=== PATIENT | female | born 1975 | race Caucasian/White ===

== ENCOUNTER 2019-05-05 15:55 | Emergency (ER) | payer OTHER ==
[~2019-05-05] VITALS: Ht 162.6 cm; Wt 92.5 kg
[~2019-05-05 15:55] MED LIST: ADVAIR 100-501 EACH INH; ADVAIR 500-501 EACH INH; ALBUTEROL SULF8.5 GM INH; AUGMENTIN 500-500 MG PO; BACTRIM DS TAB1 EACH PO; CEPHALEXIN500 MG PO; CLARITIN10 MG PO; DICLOFENAC SODI75 MG PO; DILAUDID4 MG PO; DOXYCYCLINE HY100 MG PO; DUONEB 0.5 MG-33 ML INH; GLUCOPHAGE XR500 MG PO; GLYBURIDE2.5 MG PO; IBUPROFEN400 MG PO; KEFLEX500 MG PO; LIPITOR20 MG PO; LISINOPRIL-HCT1 EAC2 PO; LISINOPRIL2.5 MG PO; METFORMIN HCL500 MG PO; NORCO 10-325 T1 EACH PO; NORCO 5-325 TA1 EACH PO; PERCOCET 5-3251 EACH PO; PROCARDIA10 MG PO; PROVERA10 MG PO; PROZAC20 MG PO; SEPTRA DS TABL1 EACH PO; TESSALON PERLE100 MG PO; VENTOLIN HFA18 GM INH; WELLBUTRIN XL150 MG PO; WELLBUTRIN XL300 MG PO; XANAX XR2 MG PO; XANAX2 MG PO; ZITHROMAX250 MG PO
--- OUTSIDE RECORDS SUMMARY | 2019-05-05 15:58 | XMS ---
PreManage Notification: MARCO NELSON Security Tile And Mottle Supervisor Events No recent Security Events currently on file CRITERIA MET - [facility] CARE PROVIDERS There are no care providers on record at this time. Dina has no Care Guidelines for this patient. Kesha VISIT COUNT (12 MO.) 2 RAKESH Pierson TOTAL 2 NOTE: Visits indicate total known visits. 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
[2019-05-05] MEDS ORDERED: LIPITOR40 MG PO (16:16)
[2019-05-05] MEDS ORDERED: PREDNISONE20 MG PO (17:58)
[2019-05-05] MEDS ORDERED: ADVAIR 250-501 EACH INH (17:58)
== END 2019-05-05 18:10 | disposition home or self-care (01) ==
LOC: ED 15:55
DX: R10.11 Right upper quadrant pain (principal); E11.9 Type 2 diabetes mellitus without complications; J45.909 Unspecified asthma, uncomplicated; I10 Essential (primary) hypertension; F32.9 Major depressive disorder, single episode, unspecified; F41.9 Anxiety disorder, unspecified; F17.200 Nicotine dependence, unspecified, uncomplicated; Z90.49 Acquired absence of other specified parts of digestive tract; Z88.8 Allergy status to other drugs, medicaments and biological substances; Z79.84 Long term (current) use of oral hypoglycemic drugs
CPT/HCPCS: 80053; 81001; 83690; 85025; 99284; J7512

== ENCOUNTER 2020-06-09 20:46 | Emergency (ER) | payer OTHER ==
[~2020-06-09] VITALS: Ht 162.6 cm; Wt 92.5 kg
[~2020-06-09 20:46] MED LIST changes: +ADVAIR 250-501 EACH INH; +LIPITOR40 MG PO; +PREDNISONE20 MG PO
--- OUTSIDE RECORDS SUMMARY | 2020-06-09 20:48 | XMS ---
PreManage Notification: MARCO NELSON Security Concrete Mixing Plant Laborer Events No recent Security Events currently on file CRITERIA MET - PDMP CARE PROVIDERS MARCO CASTILLO Physician Captain/Check Airman 05/06/2019-Current PHONE: Unknown Dina has no Care Guidelines for this patient. Kesha VISIT COUNT (12 MO.) 2 RAKESH Pierson TOTAL 2 NOTE: Visits indicate total known visits. ED/UCC VISIT TRACKING (12 MO.) 06/09/2020 20:46 RAKESH Muhammad [place] TYPE: Emergency COMPLAINT: - VOMITING 07/12/2019 18:28 RAKESH Muhammad [place] TYPE: Emergency COMPLAINT: - VOMITING DIAGNOSES: - Major depressive disorder, single episode, unspecified - Other local company intermodal truck driver (current) drug therapy - Unspecified asthma, uncomplicated - Diarrhea, unspecified - Allergy status to other drugs, medicaments and biological sub - Nausea with vomiting, unspecified - intermodal owner operator truck driver (current) use of oral hypoglycemic drugs - Type 2 diabetes mellitus without complications - Anxiety disorder, unspecified - Nicotine dependence, unspecified, uncomplicated - Essential (primary) hypertension INPATIENT VISIT TRACKING (12 MO.) No inpatient visits to display in this time frame [id number]
[2020-06-09] MEDS ORDERED: VITAMIN D350 MC1 PO (21:07)
== END 2020-06-10 00:09 | disposition home or self-care (01) ==
LOC: ED 20:46
DX: R11.10 Vomiting, unspecified (principal); E11.9 Type 2 diabetes mellitus without complications; J45.909 Unspecified asthma, uncomplicated; I10 Essential (primary) hypertension; F41.9 Anxiety disorder, unspecified; F17.200 Nicotine dependence, unspecified, uncomplicated; Z88.8 Allergy status to other drugs, medicaments and biological substances; Z79.899 Other long term (current) drug therapy
CPT/HCPCS: 80053; 81001; 83690; 84703; 85025; 96374; 96375; 96376; 99284-25; J1170; J2405; J2550; J7030

== ENCOUNTER 2020-07-10 11:33 | Emergency (ER) | payer OTHER ==
[~2020-07-10] VITALS: Ht 162.6 cm; Wt 92.5 kg
[~2020-07-10 11:33] MED LIST changes: +VITAMIN D350 MC1 PO
--- OUTSIDE RECORDS SUMMARY | 2020-07-10 11:36 | XMS ---
PreManage Notification: MARCO NELSON Security Flavor Extractor Events No recent Security Events currently on file CRITERIA MET - PDMP CARE PROVIDERS MARCO CASTILLO Physician Senior Loan Officer 05/06/2019-Current PHONE: Unknown Dina has no Care Guidelines for this patient. Kesha VISIT COUNT (12 MO.) 3 RAKESH Pierson TOTAL 3 NOTE: Visits indicate total known visits. ED/UCC VISIT TRACKING (12 MO.) 07/10/2020 11:34 RAKESH Muhammad [place] TYPE: Emergency COMPLAINT: - VOMITING, BLOOD SUGAR PROBLEM 06/09/2020 20:46 RAKESH Muhammad [place] TYPE: Emergency COMPLAINT: - VOMITING DIAGNOSES: - Anxiety disorder, unspecified - Other [facility] (current) drug therapy - Allergy status to other drugs, medicaments and biological sub - Essential (primary) hypertension - Vomiting, unspecified - Nicotine dependence, unspecified, uncomplicated - Type 2 diabetes mellitus without complications - Unspecified asthma, uncomplicated 07/12/2019 18:28 RAKESH Muhammad [place] TYPE: Emergency COMPLAINT: - VOMITING DIAGNOSES: - Major depressive disorder, single episode, unspecified - Other superintendent terminal (current) drug therapy - Unspecified asthma, uncomplicated - Diarrhea, unspecified - Allergy status to other drugs, medicaments and biological sub - Nausea with vomiting, unspecified - intermediate manager (current) use of oral hypoglycemic drugs - Type 2 diabetes mellitus without complications - Anxiety disorder, unspecified - Nicotine dependence, unspecified, uncomplicated - Essential (primary) hypertension INPATIENT VISIT TRACKING (12 MO.) No inpatient visits to display in this time frame [id number]
[2020-07-10] MEDS ORDERED: ONDANSETRON ODT8 MG PO (15:33)
[2020-07-10] MEDS ORDERED: PROMETHAZINE HC25 M1 PO (15:33)
== END 2020-07-10 15:40 | disposition home or self-care (01) ==
LOC: ED 11:33
DX: K52.9 Noninfective gastroenteritis and colitis, unspecified (principal); E11.9 Type 2 diabetes mellitus without complications; I10 Essential (primary) hypertension; J45.909 Unspecified asthma, uncomplicated; F32.9 Major depressive disorder, single episode, unspecified; F41.9 Anxiety disorder, unspecified; F17.200 Nicotine dependence, unspecified, uncomplicated; Z79.899 Other long term (current) drug therapy
CPT/HCPCS: 80053; 81001; 82010; 82803; 83690; 84703; 85025; 96361; 96374; 96375; 96376; 99284-25; J2270; J2405; J2550; J7030

== ENCOUNTER 2020-12-30 15:44 | Emergency (ER) | payer OTHER ==
[~2020-12-30] VITALS: Ht 162.6 cm; Wt 88.9 kg
[~2020-12-30 15:44] MED LIST changes: +DICYCLOMINE HCL20 MG PO; +ONDANSETRON ODT8 MG PO; +PROMETHAZINE HC25 M1 PO
--- OUTSIDE RECORDS SUMMARY | 2020-12-30 15:46 | XMS ---
PreManage Notification: MARCO NELSON Security Cartridge Filler Events No recent Security Events currently on file CRITERIA MET - PDMP CARE PROVIDERS MARCO CASTILLO Physician Chuck Tender 05/06/2019-Current PHONE: Unknown Dina has no Care Guidelines for this patient. eKsha VISIT COUNT (12 MO.) 4 RAKESH Pierson TOTAL 4 NOTE: Visits indicate total known visits. ED/UCC VISIT TRACKING (12 MO.) 12/30/2020 15:45 RAKESH Muhammad [place] TYPE: Emergency COMPLAINT: - VOMITING, DIARRHEA 11/04/2020 17:29 RAKESH Muhammad [place] TYPE: Emergency COMPLAINT: - VOMITING, CHILLS DIAGNOSES: - Essential (primary) hypertension - Noninfective gastroenteritis and colitis, unspecified - Unspecified asthma, uncomplicated - Vomiting, unspecified - assisted (current) use of oral hypoglycemic drugs - Type 2 diabetes mellitus without complications - Allergy status to other drugs, medicaments and biological substances - Other terminal makeup operator (current) drug therapy - Nicotine dependence, unspecified, uncomplicated - Allergy status to other drugs, medicaments and biological substances 07/10/2020 11:34 RAKESH Muhammad [place] TYPE: Emergency COMPLAINT: - VOMITING, BLOOD SUGAR PROBLEM DIAGNOSES: - Major depressive disorder, single episode, unspecified - Other terminal makeup operator (current) drug therapy - Nicotine dependence, unspecified, uncomplicated - Nausea with vomiting, unspecified - Unspecified asthma, uncomplicated - Type 2 diabetes mellitus without complications - Essential (primary) hypertension - Anxiety disorder, unspecified - Noninfective gastroenteritis and colitis, unspecified 06/09/2020 20:46 RAKESH Muhammad [place] TYPE: Emergency COMPLAINT: - VOMITING DIAGNOSES: - Anxiety disorder, unspecified - Other fpc (current) drug therapy - Allergy status to other drugs, medicaments and biological substances - Essential (primary) hypertension - Vomiting, unspecified - Nicotine dependence, unspecified, uncomplicated - Type 2 diabetes mellitus without complications - Unspecified asthma, uncomplicated INPATIENT VISIT TRACKING (12 MO.) No inpatient visits to display in this time frame [id number]
[2020-12-30] MEDS ORDERED: PROMETHAZINE HC25 M1 PO (19:44)
== END 2020-12-30 20:32 | disposition home or self-care (01) ==
LOC: ED 15:44
DX: R11.2 Nausea with vomiting, unspecified (principal); R10.9 Unspecified abdominal pain; R19.7 Diarrhea, unspecified; E11.9 Type 2 diabetes mellitus without complications; J45.909 Unspecified asthma, uncomplicated; I10 Essential (primary) hypertension; Z88.8 Allergy status to other drugs, medicaments and biological substances; Z79.899 Other long term (current) drug therapy; Z79.84 Long term (current) use of oral hypoglycemic drugs
CPT/HCPCS: 74177; 80053; 81001; 83735; 84703; 85025; 99284-25; J1170; J1885; J2405; J2550; J7030; Q9967

== ENCOUNTER 2021-01-21 11:53 | Emergency (ER) | payer OTHER ==
[~2021-01-21] VITALS: Ht 162.6 cm; Wt 88.9 kg
--- OUTSIDE RECORDS SUMMARY | 2021-01-21 12:29 | XMS ---
PreManage Notification: MARCO NELSON Security Training And Development Officer Events No recent Security Events currently on file CRITERIA MET - [facility] - 2 Visits in 30 Days CARE PROVIDERS ANNA MARCO Physician Cork Insulator Helper 05/06/2019-Current PHONE: Unknown Dina has no Care Guidelines for this patient. Kesha VISIT COUNT (12 MO.) [address] [place] [address] TOTAL 5 NOTE: Visits indicate total known visits. ED/UCC VISIT TRACKING (12 MO.) 01/21/2021 11:53 RAKESH Muhammad [place] TYPE: Emergency COMPLAINT: - TOOTH PAIN 12/30/2020 15:45 RAKESH Muhammad [place] TYPE: Emergency COMPLAINT: - VOMITING, DIARRHEA DIAGNOSES: - Other senior care (current) drug therapy - Diarrhea, unspecified - Nausea with vomiting, unspecified - Unspecified abdominal pain - termite renewal inspector (current) use of oral hypoglycemic drugs - Allergy status to other drugs, medicaments and biological substances - Essential (primary) hypertension - Unspecified asthma, uncomplicated - Type 2 diabetes mellitus without complications 11/04/2020 17:29 RAKESH Muhammad [place] TYPE: Emergency COMPLAINT: - VOMITING, CHILLS DIAGNOSES: - Essential (primary) hypertension - Noninfective gastroenteritis and colitis, unspecified - Unspecified asthma, uncomplicated - Vomiting, unspecified - termite renewal inspector (current) use of oral hypoglycemic drugs - Type 2 diabetes mellitus without complications - Allergy status to other drugs, medicaments and biological substances - Other senior care (current) drug therapy - Nicotine dependence, unspecified, uncomplicated - Allergy status to other drugs, medicaments and biological substances 07/10/2020 11:34 RAKESH Muhammad [place] TYPE: Emergency COMPLAINT: - VOMITING, BLOOD SUGAR PROBLEM DIAGNOSES: - Major depressive disorder, single episode, unspecified - Other termite renewal inspector (current) drug therapy - Nicotine dependence, unspecified, uncomplicated - Nausea with vomiting, unspecified - Unspecified asthma, uncomplicated - Type 2 diabetes mellitus without complications - Essential (primary) hypertension - Anxiety disorder, unspecified - Noninfective gastroenteritis and colitis, unspecified 06/09/2020 20:46 RAKESH Muhammad [place] TYPE: Emergency COMPLAINT: - VOMITING DIAGNOSES: - Anxiety disorder, unspecified - Other termite renewal inspector (current) drug therapy - Allergy status to other drugs, medicaments and biological substances - Essential (primary) hypertension - Vomiting, unspecified - Nicotine dependence, unspecified, uncomplicated - Type 2 diabetes mellitus without complications - Unspecified asthma, uncomplicated INPATIENT VISIT TRACKING (12 MO.) No inpatient visits to display in this time frame [id number]
[2021-01-21] MEDS ORDERED: CLEOCIN HCL300 MG PO (13:14)
== END 2021-01-21 13:30 | disposition home or self-care (01) ==
LOC: ED 11:53
PROC: 3E0T3BZ Introduction of Anesthetic Agent into Peripheral Nerves and Plexi, Percutaneous Approach (ICD-10-PCS; principal; 2021-01-21)
DX: K04.7 Periapical abscess without sinus (principal); E11.9 Type 2 diabetes mellitus without complications; J45.909 Unspecified asthma, uncomplicated; I10 Essential (primary) hypertension; Z88.8 Allergy status to other drugs, medicaments and biological substances; Z79.899 Other long term (current) drug therapy; Z79.84 Long term (current) use of oral hypoglycemic drugs
CPT/HCPCS: 64400; 99282-25

== ENCOUNTER 2022-01-05 07:45 | Emergency (ER) | payer OTHER ==
[~2022-01-05] VITALS: Ht 162.6 cm; Wt 89.3 kg
[~2022-01-05 07:45] MED LIST changes: +CLEOCIN HCL300 MG PO
--- OUTSIDE RECORDS SUMMARY | 2022-01-05 07:48 | XMS ---
PreManage Notification: MARCO NELSON Security Tool Grinder Events No recent Security Events currently on file CRITERIA MET - [facility] CARE PROVIDERS ANNATRAVISMARCO Physician Director Field Services Current PHONE: Unknown Dina has no Care Guidelines for this patient. Care History Medical/Surgical 01/22/2021 [facility] - PATIENT WAS LAST SEEN AT [facility]URGENT CARE 01/19/21 DUE TO TOOTH ABSCESS-PATIENT REFERRED TO SEE A DENTIST - NEXT APT WITH DR CASTILLO SCHEDULED IN MARCH 2021. - [facility] CALLED PATIENT- NO ANSWER LEFT A VOICEMAIL E.DBaldomero VISIT COUNT (12 MO.) 2 [facility] TOTAL 2 NOTE: Visits indicate total known visits. ED/UCC VISIT TRACKING (12 MO.) 01/05/2022 07:46 RAKESH Muhammad [place] TYPE: Emergency COMPLAINT: - NAUSEA 01/21/2021 11:53 RAKESH Muhammad [place] TYPE: Emergency COMPLAINT: - TOOTH PAIN DIAGNOSES: - residential (current) use of oral hypoglycemic drugs - Allergy status to other drugs, medicaments and biological substances - Periapical abscess without sinus - Other superintendent terminal (current) drug therapy - Other specified disorders of teeth and supporting structures - Type 2 diabetes mellitus without complications - Unspecified asthma, uncomplicated - Essential (primary) hypertension INPATIENT VISIT TRACKING (12 MO.) No inpatient visits to display in this time frame [id number]
[2022-01-05] MEDS ORDERED: BRIMONIDINE TART5 ML (07:51)
[2022-01-05] MEDS ORDERED: ZESTRIL20 MG PO (07:51)
[2022-01-05] MEDS ORDERED: ASPIRIN81 MG PO (07:52)
[2022-01-05] MEDS ORDERED: COSOPT PF EYE1 EACH OPTH (07:53)
[2022-01-05] MEDS ORDERED: DEPAKOTE250 MG PO (07:53)
[2022-01-05] MEDS ORDERED: WELLBUTRIN XL150 MG PO (07:54)
[2022-01-05] MEDS ORDERED: HALOPERIDOL0.5 MG PO (07:54)
[2022-01-05] MEDS ORDERED: PSYLLIUM SEED480 GM PO (07:55)
[2022-01-05] MEDS ORDERED: MULTI VITAMIN1 EACH PO (07:55)
[2022-01-05] MEDS ORDERED: LATANOPROST2.5 ML OPTH (07:56)
[2022-01-05] MEDS ORDERED: GLIPIZIDE ER5 MG PO (07:56)
[2022-01-05] MEDS ORDERED: PROPRANOLOL HCL40 MG PO (08:05)
[2022-01-05] MEDS ORDERED: JARDIANCE10 MG PO (08:05)
[2022-01-05] MEDS ORDERED: ALPRAZOLAM ER1 MG PO (08:06)
[2022-01-05] MEDS ORDERED: FLOVENT HFA12 GM INH (08:06)
[2022-01-05] MEDS ORDERED: BASAGLAR K100 UNIT/1 SUB-Q (08:06)
[2022-01-05] MEDS ORDERED: PROMETHAZINE HC25 M1 PO (09:22)
[2022-01-05] MEDS ORDERED: ONDANSETRON ODT8 MG PO (09:22)
== END 2022-01-05 10:48 | disposition home or self-care (01) ==
LOC: ED 07:45
DX: R11.15 Cyclical vomiting syndrome unrelated to migraine (principal); E11.9 Type 2 diabetes mellitus without complications; J45.909 Unspecified asthma, uncomplicated; I10 Essential (primary) hypertension; F17.200 Nicotine dependence, unspecified, uncomplicated; Z88.8 Allergy status to other drugs, medicaments and biological substances; Z79.899 Other long term (current) drug therapy; Z79.4 Long term (current) use of insulin; Z79.51 Long term (current) use of inhaled steroids
CPT/HCPCS: 36415; 80048; 83690; 85025; 96374; 96375; 99284-25; J1170; J1200; J1790; J7030

== ENCOUNTER 2022-06-22 07:48 | Emergency (ER) | payer OTHER ==
[~2022-06-22] VITALS: Ht 162.6 cm; Wt 86.2 kg
[~2022-06-22 07:48] MED LIST changes: +ALPRAZOLAM ER1 MG PO; +ASPIRIN81 MG PO; +BASAGLAR K100 UNIT/1 SUB-Q; +BRIMONIDINE TART5 ML; +COSOPT PF EYE1 EACH OPTH; +DEPAKOTE250 MG PO; +FLOVENT HFA12 GM INH; +FLUOXETINE HCL60 MG PO; +GLIPIZIDE ER5 MG PO; +HALOPERIDOL0.5 MG PO; +JARDIANCE10 MG PO; +LATANOPROST2.5 ML OPTH; +MULTI VITAMIN1 EACH PO; +PROPRANOLOL HCL40 MG PO; +PSYLLIUM SEED480 GM PO; +VICTOZA 3-0.6 MG/0.1 SUB-Q; +ZESTRIL20 MG PO
--- OUTSIDE RECORDS SUMMARY | 2022-06-22 07:50 | XMS ---
PreManage Notification: MARCO NELSON Security Riveter Portable Machine Events No recent Security Events currently on file CRITERIA MET - [facility] CARE PROVIDERS MARCO CASTILLO Physician Credit Card Analyst 05/06/2019-Current PHONE: Unknown Dina has no Care Guidelines for this patient. Care History Medical/Surgical 01/22/2021 [facility] - PATIENT WAS LAST SEEN AT [facility]-URGENT CARE 01/19/21 DUE TO TOOTH ABSCESS-PATIENT REFERRED TO SEE A DENTIST - NEXT APT WITH DR CASTILLO SCHEDULED IN MARCH 2021. - [facility]W CALLED PATIENT- NO ANSWER LEFT A VOICEMAIL E.DBaldomero VISIT COUNT (12 MO.) 3 [facility] TOTAL 3 NOTE: Visits indicate total known visits. ED/UCC VISIT TRACKING (12 MO.) 06/22/2022 07:48 RAKESH Muhammad [place] TYPE: Emergency COMPLAINT: - VOMITING 05/15/2022 18:27 RAKESH Muhammad [place] TYPE: Emergency COMPLAINT: - VOMITING DIAGNOSES: - Nausea with vomiting, unspecified - penitentiary (current) use of insulin - Upper abdominal pain, unspecified - Essential (primary) hypertension - Allergy status to other drugs, medicaments and biological substances - Nicotine dependence, unspecified, uncomplicated - Type 2 diabetes mellitus without complications 01/05/2022 07:46 RAKESH Muhammad [place] TYPE: Emergency COMPLAINT: - NAUSEA DIAGNOSES: - petroleum terminal plant operator (current) use of insulin - Essential (primary) hypertension - Other termite inspector (current) drug therapy - Nicotine dependence, unspecified, uncomplicated - petroleum terminal plant operator (current) use of inhaled steroids - Type 2 diabetes mellitus without complications - Allergy status to other drugs, medicaments and biological substances - Unspecified asthma, uncomplicated - Cyclical vomiting syndrome unrelated to migraine - Nausea with vomiting, unspecified INPATIENT VISIT TRACKING (12 MO.) No inpatient visits to display in this time frame [id number]
[2022-06-22] MEDS ORDERED: PROMETHAZINE HC25 M1 PO (13:50)
== END 2022-06-22 14:15 | disposition home or self-care (01) ==
LOC: ED 07:48
DX: R10.84 Generalized abdominal pain (principal); R11.2 Nausea with vomiting, unspecified; E11.9 Type 2 diabetes mellitus without complications; J45.909 Unspecified asthma, uncomplicated; I10 Essential (primary) hypertension; F17.200 Nicotine dependence, unspecified, uncomplicated; Z88.8 Allergy status to other drugs, medicaments and biological substances; Z79.899 Other long term (current) drug therapy; Z79.4 Long term (current) use of insulin; Z20.822 Contact with and (suspected) exposure to COVID-19
CPT/HCPCS: 36415; 74177; 80053; 81001; 83690; 85025; 87502; 96374; 96375; 99284-25; C9803; J1170; J2405; Q9967; U0003

== ENCOUNTER 2022-10-24 08:28 | Emergency (ER) | payer OTHER ==
[~2022-10-24] VITALS: Ht 162.6 cm; Wt 86.2 kg
--- OUTSIDE RECORDS SUMMARY | 2022-10-24 08:32 | XMS ---
PreManage Notification: MARCO NELSON Security Switch Cleaner Events No recent Security Events currently on file CRITERIA MET - [facility] CARE PROVIDERS MARCO CASTILLO Physician Automatic Beading Lathe Operator 05/06/2019-Current PHONE: Unknown Dina has no Care Guidelines for this patient. Care History Medical/Surgical 01/22/2021 [facility] - PATIENT WAS LAST SEEN AT [facility]URGENT CARE 01/19/21 DUE TO TOOTH ABSCESS-PATIENT REFERRED TO SEE A DENTIST - NEXT APT WITH DR CASTILLO SCHEDULED IN MARCH 2021. - CHW CALLED PATIENT- NO ANSWER LEFT A VOICEMAIL E.DBaldomero VISIT COUNT (12 MO.) [address] [place] [address] TOTAL 4 NOTE: Visits indicate total known visits. ED/UCC VISIT TRACKING (12 MO.) 10/24/2022 08:29 RAKESH Muhammad [place] TYPE: Emergency COMPLAINT: - VOMITING 06/22/2022 07:48 RAKESH Muhammad [place] TYPE: Emergency COMPLAINT: - VOMITING DIAGNOSES: - Nausea with vomiting, unspecified - Essential (primary) hypertension - Type 2 diabetes mellitus without complications - Unspecified asthma, uncomplicated - Nicotine dependence, unspecified, uncomplicated - Generalized abdominal pain - Contact with and (suspected) exposure to COVID-19 - nursing home (current) use of insulin - Other prison (current) drug therapy - Allergy status to other drugs, medicaments and biological substances 05/15/2022 18:[address] [facility] [place] TYPE: Emergency COMPLAINT: - VOMITING DIAGNOSES: - Upper abdominal pain, unspecified - Nausea with vomiting, unspecified - Nicotine dependence, unspecified, uncomplicated - Essential (primary) hypertension - nursing home (current) use of insulin - Type 2 diabetes mellitus without complications - Allergy status to other drugs, medicaments and biological substances 01/05/2022 07:[address] [facility] [place] TYPE: Emergency COMPLAINT: - NAUSEA DIAGNOSES: - Other prison (current) drug therapy - Nausea with vomiting, unspecified - nursing home (current) use of insulin - Unspecified asthma, uncomplicated - Type 2 diabetes mellitus without complications - Nicotine dependence, unspecified, uncomplicated - Essential (primary) hypertension - Cyclical vomiting syndrome unrelated to migraine - Allergy status to other drugs, medicaments and biological substances - manager long term care (current) use of inhaled steroids INPATIENT VISIT TRACKING (12 MO.) No inpatient visits to display in this time frame [id number]
[2022-10-24] MEDS ORDERED: ONDANSETRON ODT4 MG PO (13:00)
== END 2022-10-24 13:13 | disposition home or self-care (01) ==
LOC: ED 08:28
DX: R11.15 Cyclical vomiting syndrome unrelated to migraine (principal); E11.9 Type 2 diabetes mellitus without complications; I10 Essential (primary) hypertension; J45.909 Unspecified asthma, uncomplicated; F17.200 Nicotine dependence, unspecified, uncomplicated; Z88.8 Allergy status to other drugs, medicaments and biological substances; Z79.899 Other long term (current) drug therapy; Z79.4 Long term (current) use of insulin
CPT/HCPCS: 36415; 80053; 81003; 83690; 83735; 85025; 96361; 96374; 96375; 99284-25; J1170; J2405; J3480; J7040

== ENCOUNTER 2022-12-23 18:40 | Emergency (ER) | payer OTHER ==
[~2022-12-23] VITALS: Ht 162.6 cm; Wt 83.0 kg
[~2022-12-23 18:40] MED LIST changes: +ONDANSETRON ODT4 MG PO
--- OUTSIDE RECORDS SUMMARY | 2022-12-23 18:47 | XMS ---
PreManage Notification: MARCO NELSON Security Legal Contracts Specialist Events No recent Security Events currently on file CRITERIA MET - [facility] CARE PROVIDERS MARCO CASTILLO Physician Warp Worker 05/06/2019-Current PHONE: Unknown Dina has no Care Guidelines for this patient. Care History Medical/Surgical 01/22/2021 [facility] - PATIENT WAS LAST SEEN AT [facility] 01/19/21 DUE TO TOOTH ABSCESS-PATIENT REFERRED TO SEE A DENTIST - NEXT APT WITH DR CASTILLO SCHEDULED IN MARCH 2021. - CHW CALLED PATIENT- NO ANSWER LEFT A VOICEMAIL E.DBaldomero VISIT COUNT (12 MO.) [address] [place] [address] TOTAL 5 NOTE: Visits indicate total known visits. ED/UCC VISIT TRACKING (12 MO.) 12/23/2022 18:41 RAKESH Muhammad [place] TYPE: Emergency COMPLAINT: - N/V SINCE AM 10/24/2022 08:29 RAKESH Muhammad [place] TYPE: Emergency COMPLAINT: - VOMITING DIAGNOSES: - long-term (current) use of insulin - Nicotine dependence, unspecified, uncomplicated - Other residential (current) drug therapy - Nausea with vomiting, unspecified - Type 2 diabetes mellitus without complications - Cyclical vomiting syndrome unrelated to migraine - Essential (primary) hypertension - Unspecified asthma, uncomplicated - Allergy status to other drugs, medicaments and biological substances [facility]22/2022 07:[facility] [place] [facility] COMPLAINT: - VOMITING DIAGNOSES: - Nausea with vomiting, unspecified - Essential (primary) hypertension - Type 2 diabetes mellitus without complications - Unspecified asthma, uncomplicated - Nicotine dependence, unspecified, uncomplicated - Generalized abdominal pain - Contact with and (suspected) exposure to COVID-19 - long-term (current) use of insulin - Other long wall mining machine tender (current) drug therapy - Allergy status to other drugs, medicaments and biological substances 05/15/2022 18:27 [facility] [place] [facility]: Emergency COMPLAINT: - VOMITING DIAGNOSES: - Upper abdominal pain, unspecified - Nausea with vomiting, unspecified - Nicotine dependence, unspecified, uncomplicated - Essential (primary) hypertension - long-term (current) use of insulin - Type 2 diabetes mellitus without complications - Allergy status to other drugs, medicaments and biological substances 01/05/2022 07:46 [facility] [place] TYPE: Emergency COMPLAINT: - NAUSEA DIAGNOSES: - Other long wall mining machine tender (current) drug therapy - Nausea with vomiting, unspecified - long-term (current) use of insulin - Unspecified asthma, uncomplicated - Type 2 diabetes mellitus without complications - Nicotine dependence, unspecified, uncomplicated - Essential (primary) hypertension - Cyclical vomiting syndrome unrelated to migraine - Allergy status to other drugs, medicaments and biological substances - long-term (current) use of inhaled steroids INPATIENT VISIT TRACKING (12 MO.) No inpatient visits to display in this time frame [id number]
[2022-12-23] MEDS ORDERED: VENTOLIN HFA18 GM INH (18:58)
[2022-12-23] MEDS ORDERED: HYDROCODON-ACE1 EA10 PO (18:59)
[2022-12-23] MEDS ORDERED: REGLAN10 MG PO (20:32)
[2022-12-24] MEDS ORDERED: DICLOFENAC35 MG PO (16:44)
[2022-12-24] MEDS ORDERED: PROPRANOLOL HCL40 MG PO (16:46)
[2022-12-24] MEDS ORDERED: IBUPROFEN200 M1 PO (16:47)
[2022-12-24] MEDS ORDERED: FLOVENT HFA12 GM INH (16:49)
[2022-12-24] MEDS ORDERED: BASAGLAR K100 UNIT/1 SUB-Q (16:50)
[2022-12-24] MEDS ORDERED: ADVAIR 250-501 EACH INH (16:51)
[2022-12-24] MEDS ORDERED: GLYBURIDE1.25 MG PO (16:52)
[2022-12-24] MEDS ORDERED: METFORMIN HCL1000 M1 PO (16:52)
[2022-12-24] MEDS ORDERED: LISINOPRIL10 MG PO (16:52)
[2022-12-24] MEDS ORDERED: ESTRACE0.5 MG PO (16:53)
[2022-12-24] MEDS ORDERED: MEDROXYPROGESTE10 MG PO (16:54)
== END 2022-12-23 21:12 | disposition home or self-care (01) ==
LOC: ED 18:40
DX: R11.2 Nausea with vomiting, unspecified (principal); E11.9 Type 2 diabetes mellitus without complications; J45.909 Unspecified asthma, uncomplicated; I10 Essential (primary) hypertension; F17.200 Nicotine dependence, unspecified, uncomplicated; Z88.8 Allergy status to other drugs, medicaments and biological substances; Z88.5 Allergy status to narcotic agent; Z79.899 Other long term (current) drug therapy; Z79.4 Long term (current) use of insulin
CPT/HCPCS: 36415; 74018; 80053; 81001; 83735; 85025; 96374; 96375; 99284-25; A9270; J1790; J2270; J2405; J3475; J7040

== ENCOUNTER 2023-08-16 17:32 | Emergency (ER) | payer OTHER ==
[~2023-08-16] VITALS: Ht 162.6 cm; Wt 90.7 kg
[~2023-08-16 17:32] MED LIST changes: +ADVIL200 M1 PO; +ALPRAZOLAM ER0.5 MG PO; +ALPRAZOLAM0.25 MG PO; +AMITRIPTYLINE H25 MG PO; +ATORVASTATIN CA80 MG PO; +DICLOFENAC35 MG PO; +DULOXETINE HCL30 MG PO; +DULOXETINE HCL40 MG PO; +ESTRACE0.5 MG PO; +FLUTICASONE PRO12 GM INH; +GLYBURIDE1.25 MG PO; +HYDROCODON-ACE1 EA10 PO; +INSULIN GL100 UNIT/2 SUB-Q; +IPRAT-ALBUT 0.5-3 ML INH; +LISINOPRIL10 MG PO; +MEDROXYPROGESTE10 MG PO; +METFORMIN HCL1000 M1 PO; +REGLAN10 MG PO; +VITAMIN D21250 MCG PO
--- OUTSIDE RECORDS SUMMARY | 2023-08-16 17:34 | XMS ---
PreManage Notification: MARCO NELSON Security Water Aerobics Instructor Events No recent Security Events currently on file CRITERIA MET - [facility] CARE PROVIDERS YESIKAMARCO QUINTANA Physician Body Sander 05/06/2019-Current PHONE: Unknown -[place]- Dentist: Aviation Manager [facility] PHONE: [phone] Dina has no Care Guidelines for this patient. Care History Medical/Surgical 01/22/2021 [facility] - PATIENT WAS LAST SEEN AT [facility] 01/19/21 DUE TO TOOTH ABSCESS-PATIENT REFERRED TO SEE A DENTIST - NEXT APT WITH DR CASTILLO SCHEDULED IN MARCH 2021. - [facility] CALLED PATIENT- NO ANSWER LEFT A VOICEMAIL E.D. VISIT COUNT (12 MO.) [address] [facility] TOTAL 7 NOTE: Visits indicate total known visits. ED/UCC VISIT TRACKING (12 MO.) 08/16/2023 17:[address] [facility] [place] TYPE: Emergency COMPLAINT: - CHEST PAIN 06/21/2023 20:12 [facility] [place] TYPE: Emergency COMPLAINT: - VOMITING 05/27/2023 05:00 [facility] [place] TYPE: Emergency COMPLAINT: - VOMITING 03/26/2023 07:54 [facility] [place] TYPE: Emergency COMPLAINT: - VOMITING DIAGNOSES: - Allergy status to narcotic agent - Allergy status to other drugs, medicaments and biological substances - Essential (primary) hypertension - Gastroparesis - detention (current) use of insulin - Nicotine dependence, unspecified, uncomplicated - Other predatory animal exterminator (current) drug therapy - Type 2 diabetes mellitus with diabetic autonomic (poly)neuropathy - Vomiting, unspecified 03/25/2023 05:01 [facility] [place] TYPE: Emergency COMPLAINT: - VOMITING DIAGNOSES: - Allergy status to analgesic agent - Allergy status to narcotic agent - Allergy status to other drugs, medicaments and biological substances - Cannabis use, unspecified, uncomplicated - Cyclical vomiting syndrome unrelated to migraine - Essential (primary) hypertension - detention (current) use of insulin - Nicotine dependence, unspecified, uncomplicated - Other correction (current) drug therapy - Type 2 diabetes mellitus without complications - Unspecified asthma, uncomplicated - Vomiting, unspecified 12/23/2022 18:41 [facility] [place] TYPE: Emergency COMPLAINT: - N/V SINCE AM DIAGNOSES: - Allergy status to narcotic agent - Allergy status to other drugs, medicaments and biological substances - Essential (primary) hypertension - ocean transportation intermediary (current) use of insulin - Nausea with vomiting, unspecified - Nicotine dependence, unspecified, uncomplicated - Other predatory animal exterminator (current) drug therapy - Type 2 diabetes mellitus without complications - Unspecified asthma, uncomplicated 10/24/2022 08:29 [facility] [place] TYPE: Emergency COMPLAINT: - VOMITING DIAGNOSES: - Allergy status to other drugs, medicaments and biological substances - Cyclical vomiting syndrome unrelated to migraine - Essential (primary) hypertension - detention (current) use of insulin - Nausea with vomiting, unspecified - Nicotine dependence, unspecified, uncomplicated - Other predatory animal exterminator (current) drug therapy - Type 2 diabetes mellitus without complications - Unspecified asthma, uncomplicated INPATIENT VISIT TRACKING (12 MO.) 05/27/2023 14:47 [facility] TYPE: Internal Medicine DIAGNOSES: - Non-ST elevation (NSTEMI) myocardial infarction - Takotsubo syndrome - Hypoxemic respiratory failure - NSTEMI 05/27/2023 08:26 [facility] [place] TYPE: Critical Care COMPLAINT: - CHF,GASTROPARESIS,ABDOMINAL PAIN DIAGNOSES: - Acquired absence of other specified parts of digestive tract - Acquired absence of other specified parts of digestive tract - Acute pulmonary edema - Acute respiratory failure with hypoxia - Acute respiratory failure with hypoxia - Allergy status to analgesic agent - Allergy status to analgesic agent - Allergy status to other drugs, medicaments and biological substances - Allergy status to other drugs, medicaments and biological substances - Anxiety disorder, unspecified - Anxiety disorder, unspecified - Cannabis use, unspecified, uncomplicated - Cannabis use, unspecified, uncomplicated - Contact with and (suspected) exposure to COVID-19 - Contact with and (suspected) exposure to COVID-19 - Cyclical vomiting syndrome unrelated to migraine - Cyclical vomiting syndrome unrelated to migraine - Dependence on other enabling machines and devices - Dependence on other enabling machines and devices - Dependence on supplemental oxygen - Dependence on supplemental oxygen - Depression, unspecified - Depression, unspecified - Gastroparesis - Gastroparesis - Heart failure, unspecified - Heart failure, unspecified - Hypertensive heart disease with heart failure - Hypertensive heart disease with heart failure - detention (current) use of insulin - detention (current) use of insulin - Nicotine dependence, unspecified, uncomplicated - Nicotine dependence, unspecified, uncomplicated - Non-ST elevation (NSTEMI) myocardial infarction - Non-ST elevation (NSTEMI) myocardial infarction - Noninfective gastroenteritis and colitis, unspecified - Noninfective gastroenteritis and colitis, unspecified - Other correction (current) drug therapy - Other predatory animal exterminator (current) drug therapy - Other specified postprocedural states - Other specified postprocedural states - Type 2 diabetes mellitus with diabetic autonomic (poly)neuropathy - Type 2 diabetes mellitus with diabetic autonomic (poly)neuropathy - Type 2 diabetes mellitus with hyperglycemia - Type 2 diabetes mellitus with hyperglycemia - Unspecified abdominal pain - Unspecified asthma, uncomplicated - Unspecified asthma, uncomplicated [email or web address]
[2023-08-16] MEDS ORDERED: METOPROLOL SUCC25 MG PO (17:44)
[2023-08-16 17:54] LABS: BASOPHILS 0.9 % (0-2); EOSINOPHILS 0.4 % (0-6); HEMATOCRIT 47.8 % (35.0-50.0); HEMOGLOBIN 16.2 g/dL (12.0-18.0); LYMPHOCYTES 20.7 % (24-44); MCH 30.3 (27-36); MCHC 33.8 g/dl (30-36); MCV 89.5 fl (81-99); MONOCYTES 5.6 % (0-12); NEUTROPHILS 72.4 % (39-80); PLATELET COUNT 342 K/uL (140-440); RBC 5.34 M/ul (4.3-5.7); RDW 13.4 (10.5-15.0)
[2023-08-16 18:08] LABS: ALBUMIN 4.4 g/dL (3.4-5.0); ALBUMIN/GLOBULIN RATIO 1.07 (1.1-2.4); ANION GAP 18.8 (7-21); BUN/CREATININE RATIO 15.04 (6.0-28.6); CALCIUM 9.9 mg/dL (8.5-10.1); CREATININE, SERUM 1.13 mg/dL (0.55-1.02); POTASSIUM 2.8 mmol/L (3.5-5.1); PROTEIN, TOTAL 8.5 g/dL (6.4-8.2)
[2023-08-16 20:24] VITALS: BP 158/98
--- NOTE | 2023-08-16 22:13 | EKG ---
[facility] [address] [place] [address] Signed Normal sinus rhythm Normal ECG When compared with ECG of 27-MAY-2023 12:02, Vent. rate has decreased Confirmed by Ashtyn White MD () on 08/16/2023 10:13:01 PM Electronically Signed By: ASHTYN WHITE MD 08/16/232212 PATIENT NAME: MARCO NELSON Electrocardiogram DATE OF : 77 PHYSICIAN: ASHTYN WHITE MD REPORT #: [id number] REPORT IS CONFIDENTIAL AND NOT TO BE RELEASED WITHOUT AUTHORIZATION
== END 2023-08-16 20:25 | disposition home or self-care (01) ==
LOC: ED 17:32
PROVIDERS: Emergency Medicine
DX: R07.9 Chest pain, unspecified (principal); R11.2 Nausea with vomiting, unspecified; F12.90 Cannabis use, unspecified, uncomplicated; E87.6 Hypokalemia; R10.816 Epigastric abdominal tenderness; E11.9 Type 2 diabetes mellitus without complications; I10 Essential (primary) hypertension; J45.909 Unspecified asthma, uncomplicated; F17.200 Nicotine dependence, unspecified, uncomplicated; Z88.5 Allergy status to narcotic agent; Z88.8 Allergy status to other drugs, medicaments and biological substances; Z79.899 Other long term (current) drug therapy; Z79.4 Long term (current) use of insulin
CPT/HCPCS: 36415; 71045; 80053; 83690; 83735; 84484; 85025; 93005; 93010; 96361; 96374; 96375; 96376; 99285-25; A9270; J1200; J1790; J7030

== ENCOUNTER 2023-11-14 09:56 | Emergency (ER) | payer OTHER ==
[~2023-11-14] VITALS: Ht 162.6 cm; Wt 89.4 kg
[~2023-11-14 09:56] MED LIST changes: +COMPAZINE25 MG PR; +K-TAB ER20 MEQ PO; +METOPROLOL SUCC25 MG PO
[2023-11-14] MEDS ORDERED: ENTRESTO 49 MG1 EACH PO (10:31)
[2023-11-14 10:45] LABS: EOSINOPHILS 0.7 % (0-6); HEMATOCRIT 45.6 % (35.0-50.0); HEMOGLOBIN 15.2 g/dL (12.0-18.0); LYMPHOCYTES 20.7 % (24-44); MCH 29.3 (27-36); MCHC 33.4 g/dl (30-36); MCV 87.8 fl (81-99); MONOCYTES 5.7 % (0-12); NEUTROPHILS 71.9 % (39-80); PLATELET COUNT 393 K/uL (140-440); RDW 13.6 (10.5-15.0)
[2023-11-14 10:46] LABS: BILIRUBIN, URINE NEGATIVE (negative); BLOOD/HGB, URINE TRACE-I (Negative); KETONE, URINE NEGATIVE (Negative); LEUK ESTERASE, URINE NEGATIVE (negative); NITRITE, URINE NEGATIVE (negative)
[2023-11-14 10:54] LABS: ALBUMIN 4.2 g/dL (3.4-5.0); ALBUMIN/GLOBULIN RATIO 1.05 (1.1-2.4); BILIRUBIN, TOTAL 0.9 ng/dL (0.2-1.0); BUN/CREATININE RATIO 15.78 (6.0-28.6); CALCIUM 8.8 mg/dL (8.5-10.1); CREATININE, SERUM 0.95 mg/dL (0.55-1.02); PROTEIN, TOTAL 8.2 g/dL (6.4-8.2)
[2023-11-14 11:11] LABS: EPITHELIAL CELLS, URINE SQUAMOUS 2+ /lpf (0-1+)
[2023-11-14 11:12] LABS: BACTERIA, URINE 2+ /hpf (negative); CRYSTALS, URINE NONE SEEN (0-1+)
[2023-11-14 11:13] LABS: CASTS, URINE NONE SEEN \\lpf; COLLECTION TYPE, URINE CLEAN CATCH; REFLEX CULTURE, URINE No (No)
[2023-11-14 12:32] LABS: INFLUENZA B NAA NEGATIVE (NEGATIVE); RESPIRATORY SYNCYTIAL VIR NAA NEGATIVE (NEGATIVE)
[2023-11-14 15:13] VITALS: BP 119/85
== END 2023-11-14 15:15 | disposition home or self-care (01) ==
LOC: ED 09:56
PROVIDERS: Emergency Medicine
DX: R10.84 Generalized abdominal pain (principal); R11.2 Nausea with vomiting, unspecified; D72.829 Elevated white blood cell count, unspecified; I10 Essential (primary) hypertension; E11.9 Type 2 diabetes mellitus without complications; J45.909 Unspecified asthma, uncomplicated; F17.200 Nicotine dependence, unspecified, uncomplicated; Z11.52 Encounter for screening for COVID-19; Z88.8 Allergy status to other drugs, medicaments and biological substances; Z88.6 Allergy status to analgesic agent; Z88.5 Allergy status to narcotic agent; Z79.85 Long-term (current) use of injectable non-insulin antidiabetic drugs; Z79.51 Long term (current) use of inhaled steroids; Z79.4 Long term (current) use of insulin; Z79.84 Long term (current) use of oral hypoglycemic drugs; Z79.899 Other long term (current) drug therapy
CPT/HCPCS: 36415; 74177; 80053; 81001; 83690; 85025; 87502; 96375; 99284-25; C9803; J1170; J1790; J2405; Q9967; U0002

== ENCOUNTER 2024-01-18 08:14 | Emergency (ER) | payer OTHER ==
[~2024-01-18] VITALS: Ht 162.6 cm; Wt 89.7 kg
[~2024-01-18 08:14] MED LIST changes: +ENTRESTO 49 MG1 EACH PO
[2024-01-18] MEDS ORDERED: HYDROmorphone HCL 1 MG/ML SYR IV PRN (08:45)
[2024-01-18] MEDS ORDERED: droPERidol 5 MG/2 ML VIAL IV ONE (08:45)
[2024-01-18] MEDS ORDERED: SODIUM CHLORIDE 0.9% 1,000 ML IV ONE (08:45)
[2024-01-18 08:48] LABS: BASOPHILS 1.1 % (0-2); EOSINOPHILS 2.2 % (0-6); HEMOGLOBIN 15.8 g/dL (12.0-18.0); LYMPHOCYTES 29.6 % (24-44); MCH 29.6 (27-36); MCHC 34.3 g/dl (30-36); MCV 86.3 fl (81-99); MONOCYTES 5.9 % (0-12); NEUTROPHILS 61.2 % (39-80); PLATELET COUNT 321 K/uL (140-440); RBC 5.33 M/ul (4.3-5.7); RDW 13.5 (10.5-15.0)
[2024-01-18 09:01] LABS: ALBUMIN/GLOBULIN RATIO 0.93 (1.1-2.4); ANION GAP 15.3 (7-21); BILIRUBIN, TOTAL 0.5 ng/dL (0.2-1.0); BUN/CREATININE RATIO 13.13 (6.0-28.6); CALCIUM 9.8 mg/dL (8.5-10.1); CREATININE, SERUM 0.99 mg/dL (0.55-1.02); POTASSIUM 3.3 mmol/L (3.5-5.1); PROTEIN, TOTAL 8.3 g/dL (6.4-8.2)
[2024-01-18] MEDS ORDERED: ONDANSETRON ODT8 MG PO (10:33)
[2024-01-18] MEDS ORDERED: DILAUDID2 MG PO (10:33)
[2024-01-18] MEDS ORDERED: REGLAN10 MG PO (10:33)
[2024-01-18 10:47] VITALS: BP 101/53
== END 2024-01-18 10:45 | disposition home or self-care (01) ==
LOC: ED 08:14
PROVIDERS: Emergency Medicine
DX: R10.9 Unspecified abdominal pain (principal); R11.2 Nausea with vomiting, unspecified; E11.9 Type 2 diabetes mellitus without complications; I10 Essential (primary) hypertension; J45.909 Unspecified asthma, uncomplicated; F17.200 Nicotine dependence, unspecified, uncomplicated; Z88.8 Allergy status to other drugs, medicaments and biological substances; Z88.5 Allergy status to narcotic agent; Z79.899 Other long term (current) drug therapy; Z79.4 Long term (current) use of insulin
CPT/HCPCS: 36415; 74177; 80053; 83690; 85025; 96361; 96375; 99284-25; J1170; J1790; J7030; Q9967

== ENCOUNTER 2024-05-15 13:18 | Emergency (ER) | payer OTHER ==
[~2024-05-15] VITALS: Ht 162.6 cm; Wt 91.3 kg
[~2024-05-15 13:18] MED LIST changes: +DILAUDID2 MG PO; +LACTULOSE10 GM/15 M PO; +LOMOTIL TABLET1 EACH PO
[2024-05-15] MEDS ORDERED: ondansetron HCL 4 MG/2 ML VIAL IV ONE (14:00)
[2024-05-15] MEDS ORDERED: SODIUM CHLORIDE 0.9% 500 ML IV ONE (14:00)
[2024-05-15] MEDS ORDERED: droPERidol 5 MG/2 ML VIAL IV ONE (14:15)
[2024-05-15 14:40] LABS: BASOPHILS 0.7 % (0-2); EOSINOPHILS 0.6 % (0-6); HEMATOCRIT 44.5 % (35.0-50.0); HEMOGLOBIN 15.3 g/dL (12.0-18.0); LYMPHOCYTES 14.4 % (24-44); MCHC 34.3 g/dl (30-36); MCV 90.3 fl (81-99); MONOCYTES 4.2 % (0-12); NEUTROPHILS 80.1 % (39-80); PLATELET COUNT 448 K/uL (140-440); RBC 4.92 M/ul (4.3-5.7); RDW 13.6 (10.5-15.0)
[2024-05-15 14:51] LABS: ALBUMIN 4.1 g/dL (3.4-5.0); ANION GAP 20.6 (7-21); BILIRUBIN, TOTAL 0.5 ng/dL (0.2-1.0); BUN/CREATININE RATIO 10.98 (6.0-28.6); CALCIUM 9.7 mg/dL (8.5-10.1); CREATININE, SERUM 0.91 mg/dL (0.55-1.02); MAGNESIUM 1.9 mg/dL (1.8-2.4); POTASSIUM 3.6 mmol/L (3.5-5.1); PROTEIN, TOTAL 8.2 g/dL (6.4-8.2)
[2024-05-15] MEDS ORDERED: METOCLOPRAMIDE HCL 10 MG/2 ML SDV IV ONE (16:00)
[2024-05-15] MEDS ORDERED: LORazepam 2 MG/ML VIAL IV ONE (16:00)
[2024-05-15 16:07] LABS: BILIRUBIN, URINE NEGATIVE (negative); BLOOD/HGB, URINE NEGATIVE (Negative); KETONE, URINE NEGATIVE (Negative); LEUK ESTERASE, URINE NEGATIVE (negative); NITRITE, URINE NEGATIVE (negative)
[2024-05-15] MEDS ORDERED: REGLAN10 MG PO (17:41)
[2024-05-15 17:55] VITALS: BP 122/76
== END 2024-05-15 17:55 | disposition home or self-care (01) ==
LOC: ED 13:18
PROVIDERS: Emergency Medicine
DX: R11.2 Nausea with vomiting, unspecified (principal); E86.0 Dehydration; E11.43 Type 2 diabetes mellitus with diabetic autonomic (poly)neuropathy; K31.84 Gastroparesis; E11.65 Type 2 diabetes mellitus with hyperglycemia; J45.909 Unspecified asthma, uncomplicated; I10 Essential (primary) hypertension; F17.200 Nicotine dependence, unspecified, uncomplicated; Z88.8 Allergy status to other drugs, medicaments and biological substances; Z88.6 Allergy status to analgesic agent; Z79.899 Other long term (current) drug therapy; Z79.4 Long term (current) use of insulin
CPT/HCPCS: 36415; 80053; 81003; 83690; 83735; 85025; 96361; 96374; 96375; 99284-25; J1790; J2060; J2405; J2765; J7040

== ENCOUNTER 2024-08-03 09:25 | Emergency (ER) | payer OTHER ==
[~2024-08-03] VITALS: Ht 162.6 cm; Wt 92.1 kg
[~2024-08-03 09:25] MED LIST changes: +TRULICITY1.5 MG/0.5
[2024-08-03 09:53] LABS: EOSINOPHILS 1.3 % (0-6); HEMATOCRIT 41.7 % (35.0-50.0); HEMOGLOBIN 14.2 g/dL (12.0-18.0); LYMPHOCYTES 17.7 % (24-44); MCV 88.2 fl (81-99); MONOCYTES 4.3 % (0-12); NEUTROPHILS 75.7 % (39-80); PLATELET COUNT 342 K/uL (140-440); RBC 4.73 M/ul (4.3-5.7); RDW 13.5 (10.5-15.0)
[2024-08-03] MEDS ORDERED: ONDANSETRON 4 MG TAB ODT SL ONE ×2 (10:00→15:45)
[2024-08-03] MEDS ORDERED: ondansetron HCL 4 MG/2 ML VIAL IV ONE ×2 (10:00→15:15)
[2024-08-03 10:10] LABS: ALBUMIN 3.9 g/dL (3.4-5.0); ALBUMIN/GLOBULIN RATIO 0.98 (1.1-2.4); ANION GAP 16.3 (7-21); BILIRUBIN, TOTAL 0.6 ng/dL (0.2-1.0); BUN/CREATININE RATIO 11.34 (6.0-28.6); CALCIUM 9.1 mg/dL (8.5-10.1); CREATININE, SERUM 0.97 mg/dL (0.55-1.02); MAGNESIUM 1.6 mg/dL (1.8-2.4); POTASSIUM 3.3 mmol/L (3.5-5.1); PROTEIN, TOTAL 7.9 g/dL (6.4-8.2)
[2024-08-03] MEDS ORDERED: droPERidol 5 MG/2 ML VIAL IV ONE ×2 (10:15→11:15)
[2024-08-03] MEDS ORDERED: SODIUM CHLORIDE 0.9% 1,000 ML IV ONE (10:15)
[2024-08-03] MEDS ORDERED: HYDROmorphone HCL 1 MG/ML SYR IV PRN (12:30)
[2024-08-03] MEDS ORDERED: METOCLOPRAMIDE HCL 10 MG/2 ML SDV IV ONE (12:30)
--- NOTE | 2024-08-03 13:34 | EKG ---
[facility] [address] [facility] [place], [place] [address] Signed Normal sinus rhythm Normal ECG When compared with ECG of 16-AUG-2023 17:28, No significant change was found Confirmed by Ander Hayes MD ([id number]) on 08/03/2024 1:33:57 PM Electronically Signed By: ANDER HAYES 08/03/24 1334 PATIENT NAME: MARCO NELSON Electrocardiogram DATE OF : 77 PHYSICIAN: ANDER HAYES REPORT #: [id number] REPORT IS CONFIDENTIAL AND NOT TO BE RELEASED WITHOUT AUTHORIZATION
[2024-08-03] MEDS ORDERED: ONDANSETRON ODT8 MG PO (15:14)
[2024-08-03] MEDS ORDERED: diphenhydrAMINE HCL 50 MG/ML VIAL IV ONE (15:15)
[2024-08-03 15:43] VITALS: BP 183/108
[2024-08-03] MEDS ORDERED: diphenhydrAMINE HCL 25 MG CAP PO ONE (15:45)
== END 2024-08-03 15:42 | disposition home or self-care (01) ==
LOC: ED 09:25
PROVIDERS: Emergency Medicine
DX: R10.10 Upper abdominal pain, unspecified (principal); I10 Essential (primary) hypertension; E11.9 Type 2 diabetes mellitus without complications; F17.200 Nicotine dependence, unspecified, uncomplicated; Z88.5 Allergy status to narcotic agent; Z88.8 Allergy status to other drugs, medicaments and biological substances; Z79.4 Long term (current) use of insulin; Z79.899 Other long term (current) drug therapy
CPT/HCPCS: 36415; 71045; 80053; 83690; 83735; 84484; 85025; 93005; 93010; 96361; 96374; 96375; 96376; 99285-25; A9270; J1170; J1790; J2405; J2765; J7030

== ENCOUNTER 2024-10-02 10:10 | Emergency (ER) | payer OTHER ==
[~2024-10-02] VITALS: Ht 162.6 cm; Wt 91.0 kg
[2024-10-02] MEDS ORDERED: AMOXICILLIN500 MG PO (10:24)
[2024-10-02] MEDS ORDERED: PANTOPRAZOLE SODIUM 40 MG/10 ML VIAL IV ONE (10:30)
[2024-10-02] MEDS ORDERED: SODIUM CHLORIDE 0.9% 1,000 ML IV ONE (10:30)
[2024-10-02] MEDS ORDERED: droPERidol 5 MG/2 ML VIAL IV ONE (10:45)
[2024-10-02] MEDS ORDERED: HYDROmorphone HCL 1 MG/ML SYR IV ONE (10:45)
[2024-10-02 10:53] LABS: BASOPHILS 0.2 % (0-2); EOSINOPHILS 0.4 % (0-6); HEMATOCRIT 41.4 % (35.0-50.0); HEMOGLOBIN 14.3 g/dL (12.0-18.0); LYMPHOCYTES 4.4 % (24-44); MCH 30.5 (27-36); MCHC 34.6 g/dl (30-36); MCV 88.2 fl (81-99); MONOCYTES 1.8 % (0-12); NEUTROPHILS 93.2 % (39-80); PLATELET COUNT 374 K/uL (140-440); RBC 4.69 M/ul (4.3-5.7); RDW 13.7 (10.5-15.0)
[2024-10-02 11:03] LABS: ALBUMIN 4.3 g/dL (3.4-5.0); ALBUMIN/GLOBULIN RATIO 0.93 (1.1-2.4); ANION GAP 18.4 (7-21); BUN/CREATININE RATIO 8.65 (6.0-28.6); CALCIUM 9.1 mg/dL (8.5-10.1); CREATININE, SERUM 1.04 mg/dL (0.55-1.02); POTASSIUM 3.4 mmol/L (3.5-5.1); PROTEIN, TOTAL 8.9 g/dL (6.4-8.2)
[2024-10-02 12:02] LABS: BILIRUBIN, URINE NEGATIVE (negative); BLOOD/HGB, URINE TRACE-I (Negative); KETONE, URINE SMALL (Negative); LEUK ESTERASE, URINE NEGATIVE (negative); NITRITE, URINE NEGATIVE (negative)
[2024-10-02 12:08] LABS: EPITHELIAL CELLS, URINE SQUAMOUS 2+ /lpf (0-1+)
[2024-10-02 12:09] LABS: BACTERIA, URINE NONE SEEN /hpf (negative); CASTS, URINE NONE SEEN \\lpf; COLLECTION TYPE, URINE CLEAN CATCH; CRYSTALS, URINE NONE SEEN (0-1+); RED BLOOD CELLS, URINE 0-1 /hpf (0-5); REFLEX CULTURE, URINE No (No)
[2024-10-02] MEDS ORDERED: REGLAN10 MG PO (12:32)
[2024-10-02] MEDS ORDERED: ONDANSETRON ODT4 MG SL (12:32)
[2024-10-02 12:37] VITALS: BP 119/79
== END 2024-10-02 12:37 | disposition home or self-care (01) ==
LOC: ED 10:10
PROVIDERS: Emergency Medicine
DX: R11.2 Nausea with vomiting, unspecified (principal); E86.0 Dehydration; E11.65 Type 2 diabetes mellitus with hyperglycemia; J45.909 Unspecified asthma, uncomplicated; I10 Essential (primary) hypertension; I51.81 Takotsubo syndrome; F17.200 Nicotine dependence, unspecified, uncomplicated; Z98.890 Other specified postprocedural states; Z90.49 Acquired absence of other specified parts of digestive tract; Z88.8 Allergy status to other drugs, medicaments and biological substances; Z88.5 Allergy status to narcotic agent; Z88.6 Allergy status to analgesic agent; Z79.85 Long-term (current) use of injectable non-insulin antidiabetic drugs; Z79.4 Long term (current) use of insulin; Z79.899 Other long term (current) drug therapy
CPT/HCPCS: 36415; 74177; 80053; 81001; 83690; 84703; 85025; 96361; 96375; 99284-25; J1171; J1790; J2470; J7030; Q9967

== ENCOUNTER 2025-01-12 08:57 | Day surgery (SDC) | payer OTHER ==
[2025-01-06 11:43] VITALS: BP 107/74
[~2025-01-12] VITALS: Ht 162.6 cm; Wt 92.7 kg
[~2025-01-12 08:57] MED LIST changes: +AMOXICILLIN500 MG PO; +CEFAZOLIN SODIUM 2 GM/20 ML SYR IV SCH; +DEXAMETHASONE SOD PHOS 4 MG/ML VIAL ONE; +FAMOTIDINE 20 MG/ 2 ML VIAL ONE; +HEParin SOD (PORCINE) 5,000 UNIT/ML SDV SUB-Q SCH; +IBLOOD GLUCOSE TEST STRIP 1 EA TEST VI PRN; +KETOROLAC TROMETHAMINE 30 MG/ML VIAL ONE; +LACTATED RINGER'S 1,000 ML IV ONE; +LACTATED RINGER'S 1,000 ML IV SCH; +LIDOCAINE HCL 1% 5 ML SDV INJ ONE; +METOCLOPRAMIDE HCL 10 MG/2 ML SDV ONE; +MIDAZOLAM HCL 2 MG/2 ML VIAL ONE; +ONDANSETRON ODT4 MG SL; +fentaNYL citrate 100 MCG/2 ML VIAL ONE; +ondansetron HCL 4 MG/2 ML VIAL ONE; +propofoL 200 MG/20 ML VIAL ONE
[2025-01-12 09:16] VITALS: BP 112/63
[2025-01-12] MEDS ORDERED: LIDOCAINE 1% W/ EPI 1:200,000 30 ML SDV ONE ×2 (09:26→10:04)
[2025-01-12] MEDS ORDERED: BUPIVACAINE HCL 0.25% 50 ML MDV ONE (09:26)
[2025-01-12] MEDS ORDERED: LIDOCAINE HCL 2% 5 ML SDV ONE (10:03)
[2025-01-12] MEDS ORDERED: propofoL 200 MG/20 ML VIAL ONE (10:36)
[2025-01-12] MEDS ORDERED: NALOXONE HCL 0.4 MG SYR IV PRN ×2 (11:00→11:30)
[2025-01-12] MEDS ORDERED: droPERidol 5 MG/2 ML VIAL IV PRN (11:00)
[2025-01-12] MEDS ORDERED: METOCLOPRAMIDE HCL 10 MG/2 ML SDV IV PRN (11:00)
[2025-01-12] MEDS ORDERED: ondansetron HCL 4 MG/2 ML VIAL IV PRN ×2 (11:00→11:30)
[2025-01-12] MEDS ORDERED: PROCHLORPERAZINE EDISYLATE 10 MG/2 ML VIAL IV PRN ×2 (11:00→11:30)
[2025-01-12] MEDS ORDERED: fentaNYL citrate 50 MCG/ML SDV IV PRN (11:00)
[2025-01-12] MEDS ORDERED: IBLOOD GLUCOSE TEST STRIP 1 EA TEST VI PRN (11:00)
[2025-01-12] MEDS ORDERED: MEPERIDINE HCL 25 MG/1 ML VIAL IV PRN (11:00)
--- NOTE | 2025-01-12 11:21 | NUR ---
01/12/25 1121 [place]ac[place] 1114-PATIENT ARRIVED TO PACU HIGH FOWLERS 10L MASK RR EVEN. PATIENT DROWSY SITTING UP IN BED. SR HR 80'S. PATIENT ORIENTED TO PACU DENIES PAIN OR NAUSEA. NEW 22 GAUGE IV TO LEFT HAND PLACED BY SERG JUNG IN OR. 1120- PATIENT AWAKE DROWSY DENIES PAIN OR NAUSEA. IVF INFUSING. PATIENT ABLE TO MOVE LEGS A LITTLE REPORTS NUMBNESS TO RN TOUCHING TOES. PATIENT IS UNABLE TO MOVE TOES. PLACED ON RA 97% RR EVEN.
[2025-01-12] MEDS ORDERED: HYDROmorphone HCL 1 MG/ML SYR IV PRN (11:30)
--- NOTE | 2025-01-12 11:55 | NUR ---
1155- PT ARRIVES FROM PACU TO DAY SURGERY ROOM 9. BEDSIDE REPORT RECIEVED FROM ZAMZAM COLLADO. PT IS SITTING UP AND TALKING WITH NURSE. VITAL SIGNS OBTAINED. PT DENIES PAIN AND NAUSEA. PT SPINAL HAS RESOLVED BETWEEN THE ANKLE AND CALF BILATERALLY. SURGICAL SITE ASSESSED THAT IS CLEAN DRY AND INTACT. PT GIVEN WATER AND PUDDING. PT BED IS IN THE LOWEST POSITION AND LOCKED WITH CALL LIGHT IN REACH. PT REQUESTS TO SIT AT THE SIDE OF THE BED. PT IS ASSISTED TO SITTING POSITION AND ASKED TO CALL IF SHE WANTS TO STAND.
[2025-01-12 12:01] VITALS: BP 90/61
--- NOTE | 2025-01-12 12:50 | NUR ---
LE 1243-PT STANDING AT BEDSIDE. PT STATES SHE CAN FEEL THE BOTTOM OF HER FEET. LE 1244-PT AMBULATES TO RESTROOM. GAIT STEADY AND TOLERATED WELL. PT STATES LEGS STILL FEEL A LITTLE NUMB. PT VOIDS 250ML. LE 1247-PT AMBUILATES BACK TO ROOM. GAIT STEADY AND TOLERATED WELL. PT STATES SHE CAN FEEL HER LEGS MORE AFTER BEING UP AND WALKING. NO OTHER NEEDS AT THIS TIME. CALL LIGHT WITHIN REACH.
[2025-01-12 13:03] VITALS: BP 107/63
--- NOTE | 2025-01-12 13:21 | NUR ---
ANTIONE 1258-PT GETTING DRESSED. CALL BELLA WITHIN REACH.
--- NOTE | 2025-01-12 13:23 | NUR ---
LE 1303-PT SITTING AT BEDSIDE. RESP EVEN AND UNLABORED. DENIES PAIN AND NAUSEA. DRESSING IS CLEAN, DRY, AND INTACT. LE 1307-WENT OVER DISCHARGE INSTRUCTIONS WITH PT. ALL QUESTIONS ANSWERED. NO OTHER NEEDS AT THIS TIME. PT AMBULATES TO WHEELCHAIR AND RIDE PROVIED TO FRONT OF HOSPITAL WHERE DAUGHTER WAS WAITING WITH THE CAR.
--- NOTE | 2025-01-13 07:15 | OR ---
[facility] [address] [place], [place] [address] Signed DATE OF OPERATION: 01/12/2025 SURGEON: Adams Styles MD PREOPERATIVE DIAGNOSIS: Right perineal cyst/hidradenitis. POSTOPERATIVE DIAGNOSIS: Right perineal cyst/hidradenitis. PROCEDURES: Right perineal cyst/hidradenitis (1 x 3 cm). ESTIMATED BLOOD LOSS: None. INDICATIONS: Marco is a 49-year-old obese diabetic female I have known for years. She has had trouble with hidradenitis particular around the groin and perineum. We have been able to help her in the office for many of these. She often uses mupirocin ointment, clindamycin solution or doxycycline to get it to settle down. She now has one in the right perineum somewhat posteriorly where the thigh meets the gluteal area. She said that one has been given her the most trouble. She was finally asked to see me as a local general surgeon to have it removed. I explained to her that is in a difficult spot and I was going to have to do it in the operating room with the help of the OR nurses under good lighting. We used an elliptical radial incision to get around it and will bring that incision back together. She understands this will be a day surgery. There is risk including, but not limited to bleeding, infection, scarring, change in contour of the skin as well as recurrent hidradenitis in the same or other locations. She had expressed understanding and wished to proceed. DESCRIPTION OF PROCEDURE: I met with Marco in our preop area along with our nurse. She was able to show me the area and colon side with my notes as well. We marked that appropriately. After this, Marco was taken into the operating room and placed in the sitting position. Our nurse circuit court clerk gave her a saddle block. She was then turned into the prone liam-knife position with appropriate padding and monitoring. She was given monitored anesthesia care as well. She had been prepped and draped in the usual sterile fashion. We did not give her any heparin. We used SCDs. She was given antibiotic. After this, we made an elliptical incision with a 15 blade knife around the area of the hidradenitis Electronically Signed By: ADAMS STYLES MD 01/13/25 0715 PATIENT NAME: MARCO NELSON OPERATIVE REPORT DATE OF : 77 REPORT #: [id number] PHYSICIAN: ADAMS STYLES MD PCP: MARCO CASTILLO PAC REPORT IS CONFIDENTIAL AND NOT TO BE RELEASED WITHOUT AUTHORIZATION [facility] [address] [place], [place] [address] Signed about a cm wide and about 3 cm in length. This was carried down through the tissues with the cautery and the underlying fat was quite healthy. We took another 2 or 3 mm of skin on the more posterior aspect of that incision until we were back to healthy skin. Both pieces of skin were sent off to the lab together. I injected some additional bupivacaine in that area. The wound was irrigated and suctioned out until clear. We closed the dermis with interrupted 3-0 subcuticular Monocryl sutures. The skin edges were brought back together with a running 3-0 fast absorbing plain gut suture. Dry gauze was applied along with her mesh underwear. Marco was then rotated into the supine position on her hospital bed. After this, she was taken in the recovery room in stable condition. Adams Styles MD ALB/MODL /[id number] cc: Patient Chart MD Marco Munoz PA-C Copies: ADAMS STYLES MD ~ Electronically Signed By: ADAMS STYLES MD 01/13/25 0715 PATIENT NAME: MARCO NELSON OPERATIVE REPORT DATE OF : 77 REPORT #: [id number] PHYSICIAN: ADAMS STYLES MD PCP: MARCO CASTILLO PAC REPORT IS CONFIDENTIAL AND NOT TO BE RELEASED WITHOUT AUTHORIZATION
--- NOTE | 2025-01-14 12:09 | PATH ---
[facility] [address] [place], [place] [address] Signed SPECIMEN(S): A RIGHT PERINEUM HYDRADENITIS SPECIMEN SOURCE: A. RIGHT PERINEUM HYDRADENITIS CLINICAL HISTORY: Hidradenitis; right perineal cyst. FINAL PATHOLOGIC DIAGNOSIS: A. Right perineum hidradenitis, excision: - Skin and subcutaneous tissue with cyst rupture and surrounding acute and chronic inflammation, consistent with hidradenitis suppurativa. DDF MICROSCOPIC EXAMINATION: Histologic sections of all submitted blocks are examined by light microscopy. These findings, together with the gross examination, support the pathologic diagnosis. GROSS DESCRIPTION: The specimen, labeled and designated "Jennifer, right perineum hidradenitis," is received in formalin and consists of two skin ellipse that measure 3.3 x 0.3 x 0.8 cm and 3.5 x 1.4 x 1.2 cm. Skin surfaces brown-mansfield and smooth. Specimen is inked. Sectioning through the specimen reveal pink-mansfield, soft and liquefied subcutaneous tissue. Music Librarian sections are submitted in (A1-A2). JS (under the direct supervision of a pathologist) The Gross Description was prepared using a voice recognition system. The report was reviewed for accuracy; however, sound-alike word errors, addition and/or deletions may occur. If there is any question about this report, please contact Client Services. ADDITIONAL NOTES: Immunohistochemical and/or in situ hybridization studies if performed in this case included appropriate positive controls that reacted as expected. This test was developed and its performance characteristics determined by [facility]. It has not been cleared or approved by the U.S. Food and Drug Administration. The FDA has determined that such clearance or approval is not necessary. This test is used for clinical purposes. It should not be regarded as investigational or for research. [facility] is certified under the PATIENT NAME: MARCO NELSON PATHOLOGY DATE OF : 77 REPORT #: [id number] PHYSICIAN: MASSIMO PATHOLOGY PCP: MARCO CASTILLO PAC REPORT IS CONFIDENTIAL AND NOT TO BE RELEASED WITHOUT AUTHORIZATION [facility] [address] [place] [address] [place] [address] Signed Clinical Laboratory Improvement Amendments of 1988 (CLIA) as qualified to perform high complexity clinical laboratory testing. PERFORMING LABORATORY: Technical component was performed by [facility], [address] [place] [address] (CLIA# [id number]). Professional interpretation was performed by [facility] - [facility], [address] [place] [address] (CLIA#: [id number]). Diagnostician: Curtis Khan DO Pathologist Electronically Signed 01/14/2025 Copies: ~ PATIENT NAME: MARCO NELSON PATHOLOGY DATE OF : 77 REPORT #: [id number] PHYSICIAN: MASSIMO PATHOLOGY PCP: MARCO CASTILLO PAC REPORT IS CONFIDENTIAL AND NOT TO BE RELEASED WITHOUT AUTHORIZATION
== END 2025-01-12 13:07 | disposition home or self-care (01) ==
LOC: DS 08:57
PROVIDERS: ATTEND Colon & Rectal Surgery
PROC: 0HB9XZZ Excision of Perineum Skin, External Approach (ICD-10-PCS; principal; 2025-01-12 10:00)
DX: L73.2 Hidradenitis suppurativa (principal); E11.9 Type 2 diabetes mellitus without complications; J44.9 Chronic obstructive pulmonary disease, unspecified; I10 Essential (primary) hypertension; F33.1 Major depressive disorder, recurrent, moderate; K21.9 Gastro-esophageal reflux disease without esophagitis; E78.5 Hyperlipidemia, unspecified; E66.9 Obesity, unspecified; Z68.35 Body mass index [BMI] 35.0-35.9, adult; Z87.891 Personal history of nicotine dependence; Z79.4 Long term (current) use of insulin; Z79.899 Other long term (current) drug therapy; Z88.5 Allergy status to narcotic agent; Z88.6 Allergy status to analgesic agent; Z90.49 Acquired absence of other specified parts of digestive tract
CPT/HCPCS: 00400; 84703; J0690; J1100; J1885; J2003; J2250; J2405; J2704; J2765; J3010; J7121

== ENCOUNTER 2025-03-24 17:09 | Emergency (ER) | payer OTHER ==
[~2025-03-24] VITALS: Ht 162.6 cm; Wt 85.0 kg
[~2025-03-24 17:09] MED LIST changes: +AMITRIPTYLINE100 MG PO; -CEFAZOLIN SODIUM 2 GM/20 ML SYR IV SCH; +CONSTULOSE10 GM/15 M PO; -DEXAMETHASONE SOD PHOS 4 MG/ML VIAL ONE; -FAMOTIDINE 20 MG/ 2 ML VIAL ONE; +FLUTICASONE-SA1 EAC4 INH; -HEParin SOD (PORCINE) 5,000 UNIT/ML SDV SUB-Q SCH; -IBLOOD GLUCOSE TEST STRIP 1 EA TEST VI PRN; -KETOROLAC TROMETHAMINE 30 MG/ML VIAL ONE; -LACTATED RINGER'S 1,000 ML IV ONE; -LACTATED RINGER'S 1,000 ML IV SCH; +LANTUS SOL100 UNIT/1 SUB-Q; -LIDOCAINE HCL 1% 5 ML SDV INJ ONE; -METOCLOPRAMIDE HCL 10 MG/2 ML SDV ONE; -MIDAZOLAM HCL 2 MG/2 ML VIAL ONE; +TRULICITY3 MG/0.5 M SUB-Q; -fentaNYL citrate 100 MCG/2 ML VIAL ONE; -ondansetron HCL 4 MG/2 ML VIAL ONE; -propofoL 200 MG/20 ML VIAL ONE
[2025-03-24] MEDS ORDERED: ondansetron HCL 4 MG/2 ML VIAL IV ONE (18:00)
[2025-03-24] MEDS ORDERED: SODIUM CHLORIDE 0.9% 500 ML IV ONE (18:00)
[2025-03-24] MEDS ORDERED: droPERidol 5 MG/2 ML VIAL IM ONE (18:15)
[2025-03-24] MEDS ORDERED: HYDROmorphone HCL 1 MG/ML SYR IV PRN (18:15)
[2025-03-24 19:37] LABS: EOSINOPHILS 0.3 % (0-6); MCHC 33.1 g/dl (30-36); RBC 4.86 M/ul (4.3-5.7); RDW 15.6 (10.5-15.0)
[2025-03-24 19:44] LABS: HEMATOCRIT 39.5 % (35.0-50.0); HEMOGLOBIN 13.1 g/dL (12.0-18.0); LYMPHOCYTES 17.6 % (24-44); MCH 26.9 (27-36); MCV 81.2 fl (81-99); MONOCYTES 5.1 % (0-12); PLATELET COUNT 496 K/uL (140-440)
[2025-03-24 19:58] LABS: ALBUMIN 3.6 g/dL (3.4-5.0); ALBUMIN/GLOBULIN RATIO 0.86 (1.1-2.4); ANION GAP 11.2 (7-21); BILIRUBIN, TOTAL 0.4 mg/dL (0.2-1.0); BUN/CREATININE RATIO 14.73 (6.0-28.6); CALCIUM 8.7 mg/dL (8.5-10.1); CREATININE, SERUM 0.95 mg/dL (0.55-1.02); MAGNESIUM 1.8 mg/dL (1.8-2.4); POTASSIUM 3.2 mmol/L (3.5-5.1); PROTEIN, TOTAL 7.8 g/dL (6.4-8.2)
[2025-03-24 20:38] LABS: BILIRUBIN, URINE NEGATIVE (negative); BLOOD/HGB, URINE NEGATIVE (Negative); KETONE, URINE NEGATIVE (Negative); LEUK ESTERASE, URINE NEGATIVE (negative); NITRITE, URINE NEGATIVE (negative)
[2025-03-24] MEDS ORDERED: RELISTOR150 MG PO (21:38)
[2025-03-24] MEDS ORDERED: Methylnaltrexone Bromide 12 MG/0.6 ML VIAL SUB-Q ONE (21:45)
[2025-03-24] MEDS ORDERED: NALOXONE 4 MG NASAL SPRAY #2 HOME.PACK NAS ONE (21:45)
[2025-03-24] MEDS ORDERED: Buprenorphine/Naloxone 8/2mg 1 EACH HOME.PACK SL ONE (21:45)
[2025-03-24 22:16] VITALS: BP 120/74
== END 2025-03-24 22:10 | disposition home or self-care (01) ==
LOC: ED 17:09
PROVIDERS: Emergency Medicine
DX: K91.89 Other postprocedural complications and disorders of digestive system (principal); K56.7 Ileus, unspecified; F11.23 Opioid dependence with withdrawal; E11.9 Type 2 diabetes mellitus without complications; J45.909 Unspecified asthma, uncomplicated; I10 Essential (primary) hypertension; F17.200 Nicotine dependence, unspecified, uncomplicated; Z79.52 Long term (current) use of systemic steroids; Z79.4 Long term (current) use of insulin; Z79.899 Other long term (current) drug therapy; Z88.5 Allergy status to narcotic agent; Z88.8 Allergy status to other drugs, medicaments and biological substances
CPT/HCPCS: 36415; 74177; 80053; 81003; 83735; 85025; 96374; 96375; 99284-25; A9270; J1171; J1790; J2212; J2405; J3490; J7040; Q9967